=== PATIENT | female | born 1990 | race Caucasian/White ===

== ENCOUNTER 2017-11-29 21:35 | Emergency (ER) | payer OTHER ==
[~2017-11-29] VITALS: Ht 160 cm; Wt 68.0 kg
--- NOTE | 2017-11-29 21:36 | NUR ---
Placed in room 1. Placed on equipment monitor phototypesetting, blood pressure machine and pulse oximeter. To gown for exam. Side rails up. Report given to Norman DEJESUS.
[2017-11-29 21:39] VITALS: BP_SYST 115
--- NOTE | 2017-11-29 21:45 | NUR ---
Patient to ER via EMS with c/o pain to her left posterior head, after a non-syncopal fall while smoking marijuana. Patient hit head on table, no bleeding noted, patient arrives in [id number] to move all extremities without difficulty. Patient is awake, alert and oriented in no acute distress, vital signs stable, respirations even and unlabored, skin warm and dry to touch. Awaiting evaluation by ER MD, will continue to observe and assess.
--- NOTE | 2017-11-29 22:00 | NUR ---
Dr Sy at bedside to evaluate patient.
[2017-11-29 22:25] VITALS: BP_SYST 110
--- NOTE | 2017-11-29 22:25 | NUR ---
Patient given written and verbal discharge instructions and verbalizes understanding. ER MD discussed with patient the results and treatment provided. Patient in stable condition. ID arm band removed. No RX given. Patient educated on pain management and to follow up with PMD. Pain Scale 0. Opportunity for questions provided and answered. Patient signed out of ER by Dr Sy, patient left ER ambulating with slow, steady gait in no acute distress.
== END 2017-11-29 22:25 | disposition home or self-care (01) ==
LOC: SED 21:35
DX: F12.10 Cannabis abuse, uncomplicated (principal); R51 Headache
CPT/HCPCS: 99283